=== PATIENT | female | born 1975 | race Caucasian/White ===

== ENCOUNTER 2024-05-06 09:32 | Emergency (ER) | payer MEDICAID, SELFPAY ==
[2024-05-06 09:43] VITALS: BP 151/94; PULSE 87; RESP 18; TEMP 36.6; O2SAT 99; BMI 34.4
--- NOTE | 2024-05-06 10:17 | ED_ITS ---
HPI - Anxiety General Chief Complaint: Anxiety Stated Complaint: anxiety Time Seen by Provider: 05/06/24 09:54 Source: patient Mode of arrival: ambulatory Limitations: no limitations History of Present Illness ED Provider: Daniel Jarvis PA-C HPI narrative: 48 yo female with history of anxiety and HTN presents to the ER for evaluation of anxiety and high blood pressure after losing her medications. Patient is from [place] and reports that the airline lost her luggage last Friday. She has been without her clonazepam and Norvasc since then. She reports feeling nauseous and anxious for the last several days. She is usually on clonazepam 1 mg 3 times a day and Norvasc 5 mg per day. She is also on Zoloft on atenolol which she had an a separate bag. She has been taking those appropriately. She leaves to go back to [place] in 3 days. She is asking for brief refills of these medications until she can go home. She reports significant anxiety, difficulty sleeping. She denies any chest pain, shortness of breath, headaches, vision changes. MD complaint: anxiety Onset (ago): day(s) Severity: severe Quality: worsening Place: home History of similar episodes: Yes Provoking factors: medication change Relieving factors: medication Exacerbating factors: nothing Associated symptoms: denies other symptoms Related Data Previous Rx's ?Medication ?Instructions ?Recorded amlodipine 5 mg tablet (Norvasc) 5 mg PO DAILY #7 tabs 05/06/24 clonazepam 1 mg tablet (Klonopin) 1 mg PO TID #9 tabs 05/06/24 Allergies Allergy/AdvReac Type Severity Reaction Status Date / Time amoxicillin [AMOXICILLIN] Allergy Intermediate RASH Verified 05/06/24 09:46 codeine [CODEINE] Allergy Intermediate RASH Verified 05/06/24 09:46 doxycycline [DOXYCYCLINE] Allergy Intermediate RASH Verified 05/06/24 09:46 dicyclomine [Bentyl] Allergy Unknown Rash Verified 05/06/24 09:46 Iodinated Contrast Media Allergy Unknown RASH Verified 05/06/24 09:46 [IV CONTRAST] mushroom AdvReac Unknown NAUSEA Verified 05/06/24 09:46 mushrooms Allergy Unknown Nausea Uncoded 05/06/24 09:46 Review of Systems Review of Systems: Yes all other systems are reviewed and are negative PMFSH Social History Social History Advance Directives: No Advance Directives Information Provided: Yes Physical Exam Vital Signs: Vital Signs: Last Vital Signs Temp 98 F 05/06/24 09:43 Pulse 87 05/06/24 09:43 Resp 18 05/06/24 09:43 BP 151/94 H 05/06/24 09:43 Pulse Ox 99 05/06/24 09:43 O2 Del Method Room Air 05/06/24 09:43 BMI result Body Mass Index 34.4 Appearance: Alert. Oriented X3. No acute distress. Head: normocephalic, atraumatic. Eyes: Pupils equal, round and reactive to light. ENT: Pharynx normal. No tonsillar swelling or exudate. Neck: Normal inspection. Neck supple. CVS: Normal heart rate and rhythm. Pulses normal. Respiratory: No respiratory distress. Breath sounds normal. Abdomen: Soft and nontender. +BS x4 Skin: Skin warm and dry. Normal skin color. Normal skin turgor. No rashes. Extremities: No lower extremity edema. No joint swelling. Neuro/psych: Oriented X 3. No motor deficit. No sensory deficit. CN II-XII intact. Normal speech and cognition. Medical Decision Making Medical Decision Making MDM Narrative: 48-year-old female with a history of anxiety and hypertension presents to the ER for medication refills. She has been anxious without her her clonazepam for the last 6 days. She denies going through benzodiazepine withdrawal but does report some nausea. She is on Ozempic so has chronic nausea. She take Zofran for this. She reports some difficulty sleeping without her clonazepam. On arrival to the ER patient is visibly anxious. Her vital signs show some mild hypertension with systolic blood pressure 150. She is not tachycardic. In the ER she was given 1 mg of clonazepam and 5 mg of Norvasc. Unable to check the [employer] [place]. Will prescribe a short course, 3 days, of her clonazepam. She understands this is a controlled substance and needs to be closely monitored. She was encouraged follow-up with her primary care for further refills. She was also given prescription for Norvasc. She is stable for discharge home. Differential Diagnosis Differential Diagnoses: The differential diagnosis associated with the presentation includes Acute anxiety, benzo withdrawal, stage II hypertension, no evidence of hypertensive urgency or emergency Tests considered The following testing was considered but not selected: Considered EKG and basic lab workup however her vital signs and physical exam were reassuring against any acute hypertensive process benzodiazepine withdrawal Prescription Management I considered prescription management with: Other (Anxiolytic, antihypertensive) Chronic Conditions Patient?s care impacted by: Hypertension and Other (Anxiety) Social Determinants Patient?s care significantly limited by Social Determinants of Health including: Other Social Determinant of Health Critical Care Time Critical Care Time Critical Care Time: No Discharge Plan Discharge Clinical Impression: Hypertension Qualifiers: Hypertension type: unspecified Qualified Code(s): I10 - Essential (primary) hypertension Anxiety disorder Qualifiers: Anxiety disorder type: unspecified anxiety disorder Qualified Code(s): F41.9 - Anxiety disorder, unspecified Patient Disposition: Home, Self-Care Instructions: Hypertension (ED), Anxiety (ED) Additional Instructions: recommend taking the klonopin 2 times per day until you can see your doctor follow up with your doctor for further re-fills If you develop new or worsening symptoms call 911 or come back to the ER for further evaluation. Prescriptions: New clonazepam [Klonopin] 1 mg tablet 1 mg PO TID Qty: 9 0RF amlodipine [Norvasc] 5 mg tablet 5 mg PO DAILY Qty: 7 0RF Print Language: [place]
[2024-05-06 10:55] VITALS: BP 135/95
[2024-05-06] MEDS: amLODIPine Besylate 5 MG TABLET PO (10:55)
[2024-05-06] MEDS: clonazePAM 1 MG TABLET PO (10:56)
--- NOTE | 2024-05-06 11:00 | PC.NURSE ---
pt medicated per Nov pt b/p 135/95 upon admin of mlodipine- all questions answered NAD on discharge
[2024-05-06 11:02] VITALS: BP 135/95; PULSE 87; RESP 18; TEMP 36.6; O2SAT 99
== END 2024-05-06 11:02 | disposition home or self-care (01) ==
PROVIDERS: Emergency Provider Student in an Organized Health Care Education/Training Program
DX: I10 Essential (primary) hypertension (principal); F41.9 Anxiety disorder, unspecified
CPT/HCPCS: 99282; 99283